=== PATIENT | male | born 1980 | race Caucasian/White ===

== ENCOUNTER 2017-06-09 15:51 | Emergency (ER) | payer SELFPAY ==
[~2017-06-09] VITALS: Ht 182.9 cm; Wt 113.6 kg
[2017-06-09 15:53] VITALS: TEMP 97.2
[2017-06-09 17:04] LABS: BASO # 0.1 (0.0-0.2); BASO % 1.3 % (0.0-2.0); EOS # 0.1 (0.0-0.7); EOS % 1.3 % (0-4.0); GRAN # 4.3 (1.4-6.5); GRAN % 63.3 % (42.2-75.2); HEMATOCRIT 45.7 % (42.0-52.0); HEMOGLOBIN 15.6 g/dl (13.5-18.0); LYMPH # 1.9 (1.2-3.4); MEAN CELL VOLUME 94 fl (80.0-100.0); MEAN CORPUSCULAR HEMOGLOBIN 32 pg (27.0-31.0); MEAN CORPUSCULAR HGB CONC 34 g/dl (33.0-37.0); MEAN PLATELET VOLUME 10.8 fl (7.4-10.4); MONO # 0.4 (0.1-0.6); PLATELET COUNT 262 K/mm3 (130-400); RED BLOOD COUNT 4.88 M/mm3 (4.20-5.60); REDCELL DISTRIBUTION WIDTH-CV 11.9 % (11.5-14.5); WHITE BLOOD COUNT 6.7 K/mm3 (4.8-10.8)
[2017-06-09 17:06] LABS: ADJUSTED CALCIUM 8.3 mg/dL (8.4-10.2); ALBUMIN 3.9 gm/dL (3.5-5.0); BILIRUBIN,TOTAL 0.5 mg/dL (0.0-1.0); CALCIUM 8.2 mg/dL (8.4-10.2); CREATININE, serum 0.73 mg/dL (0.66-1.25); POTASSIUM 3.9 mmol/L (3.4-5.0)
[2017-06-09 18:23] VITALS: BP 114/79
[2017-06-09 19:42] VITALS: PULSE 89
== END 2017-06-09 19:47 | disposition home or self-care (01) ==
LOC: COL.ER 15:51
PROVIDERS: Family Medicine
DX: F10.129 Alcohol abuse with intoxication, unspecified (principal); Y90.8 Blood alcohol level of 240 mg/100 ml or more
CPT/HCPCS: J2405; J7030

== ENCOUNTER 2018-07-16 15:25 | Emergency (ER) | payer SELFPAY ==
[~2018-07-16] VITALS: Ht 185.4 cm; Wt 103.2 kg
[2018-07-16 15:28] VITALS: BP 131/82; TEMP 99.6
[2018-07-16] MEDS ORDERED: NORCO 325 MG-51 TAB PO (16:43)
[2018-07-16 17:25] VITALS: PULSE 112
== END 2018-07-16 17:25 | disposition home or self-care (01) ==
LOC: COL.ER 15:25
DX: S83.91XA Sprain of unspecified site of right knee, initial encounter (principal); M25.461 Effusion, right knee; X50.0XXA Overexertion from strenuous movement or load, initial encounter
CPT/HCPCS: L1846

== ENCOUNTER 2019-08-16 01:22 | Emergency (ER) | payer SELFPAY ==
[~2019-08-16] VITALS: Ht 185.4 cm; Wt 104.5 kg
[~2019-08-16 01:22] MED LIST: NORCO 325 MG-51 TAB PO
[2019-08-16 01:24] VITALS: TEMP 97.6
[2019-08-16 01:40] LABS: BASO % 0.9 % (0.0-2.0); EOS # 0.1 (0.0-0.7); EOS % 1.4 % (0-4.0); GRAN # 2.3 (1.4-6.5); GRAN % 53.7 % (42.2-75.2); HEMATOCRIT 49.9 % (42.0-52.0); HEMOGLOBIN 16.7 g/dl (13.5-18.0); LYMPH # 1.4 (1.2-3.4); LYMPH % 33.6 % (20.0-51.0); MEAN CELL VOLUME 95 fl (80.0-100.0); MEAN CORPUSCULAR HEMOGLOBIN 32 pg (27.0-31.0); MEAN CORPUSCULAR HGB CONC 34 g/dl (33.0-37.0); MONO # 0.4 (0.1-0.6); MONO % 10.2 % (1.7-9.3); PLATELET COUNT 125 K/mm3 (130-400); RED BLOOD COUNT 5.24 M/mm3 (4.20-5.60); REDCELL DISTRIBUTION WIDTH-CV 14.6 % (11.5-14.5)
[2019-08-16 01:49] LABS: BILIRUBIN,TOTAL 1.2 mg/dL (0.0-1.0); CALCIUM 8.2 mg/dL (8.4-10.2); CREATININE, serum 0.72 (0.66-1.25); POTASSIUM 3.4 mmol/L (3.4-5.0); TOTAL PROTEIN 7.7 gm/dL (6.4-8.2)
--- NOTE | 2019-08-16 09:15 | NUR ---
JOAQUIM mo responded to a social work program coordinator consult for the patient due to alcohol related concerns. JOAQUIM mo verified the patient's demographics but states his telephone number is . The patient is self-pay and student asked the patient if he was interested in speaking to [facility] financial counselors. The patient was interested, JOAQUIM mo contacted [facility]. One of the counselors will visit with the patient before discharge. JOAQUIM mo offered the substance abuse options of inpatient and outpatient rehab. The patient was not interested in these options. The patient reports he has a commanding officer garage (PO), Alesia Leal for about a month and will have her for a year. The patient reports he is to set up a free drug evaluation with his PO sometime next week. The patient did not have his phone with him and did not have his POs phone number. JOAQUIM mo collaborated the above information with the patient's nurse.
[2019-08-16 11:00] VITALS: BP 113/80; PULSE 76
== END 2019-08-16 11:00 | disposition home or self-care (01) ==
LOC: COL.ER 01:22
PROVIDERS: Nurse Practitioner
DX: F10.229 Alcohol dependence with intoxication, unspecified (principal); R94.5 Abnormal results of liver function studies; Y90.8 Blood alcohol level of 240 mg/100 ml or more
CPT/HCPCS: J2405; J7030

== ENCOUNTER 2022-03-30 16:18 | Emergency (ER) | payer SELFPAY ==
[~2022-03-30] VITALS: Ht 185.4 cm; Wt 90.9 kg
[2022-03-30 16:20] VITALS: TEMP 99.4
[2022-03-30 16:54] LABS: HEMATOCRIT 44.7 % (42.0-52.0); HEMOGLOBIN 16.1 g/dl (13.5-18.0); MEAN CELL VOLUME 93 fl (80.0-100.0); MEAN CORPUSCULAR HEMOGLOBIN 33 pg (27-31); MEAN CORPUSCULAR HGB CONC 36 g/dl (33.0-37.0); MEAN PLATELET VOLUME 11.3 fl (7.4-10.4); PLATELET COUNT 104 K/mm3 (130-400); RED BLOOD COUNT 4.82 M/mm3 (4.20-5.60); REDCELL DISTRIBUTION WIDTH-CV 12.2 % (11.5-14.5)
[2022-03-30 17:18] LABS: ALBUMIN 3.8 gm/dL (3.5-5.0); ANION GAP 19 mmol/L (7-16); BLOOD UREA NITROGEN 5 mg/dL (9-21); CALCIUM 8.6 mg/dL (8.4-10.2); CARBON DIOXIDE 24 mmol/L (22-29); CHLORIDE 96 mmol/L (98-107); CREATININE, serum 0.82 mg/dL (0.72-1.25); GLUCOSE 111 mg/dL (70-99); MAGNESIUM 1.7 mg/dL (1.6-2.6); PHOSPHOROUS 1.5 mg/dL (2.3-4.7); SODIUM 139 mmol/L (136-145)
[2022-03-30 17:42] LABS: ALCOHOL(ethanol),MEDICAL < 10 mg/dL (0-10)
[2022-03-30 17:43] LABS: POTASSIUM 2.7 mmol/L (3.5-4.5)
[2022-03-30 18:04] LABS: COLLECTION METHOD CLEAN CATCH
[2022-03-30 18:12] LABS: MUCOUS Present (NOT PRESENT); PH 6 (5-8); SQUAMOUS EPITHELIAL None Seen /hpf (0-10); URINE APPEARANCE Clear (CLEAR/HAZY); URINE BACTERIA None Seen /hpf (NONE SEEN); URINE BILIRUBIN Negative (NEGATIVE); URINE BLOOD Negative (NEGATIVE); URINE COLOR Amber (YELLOW); URINE GLUCOSE Negative (NEGATIVE); URINE KETONE Trace (NEGATIVE); URINE LEUKOCYTE ESTERASE Negative (NEGATIVE); URINE NITRATE Negative (NEGATIVE); URINE PROTEIN(semi-quant) 2+ (NEGATIVE); URINE RBC 0-2 /hpf (0-2); URINE UROBILINOGEN >=4.0 (NEGATIVE)
[2022-03-30 18:18] LABS: TRICYCLIC ANTIDEPRESS URINE NEGATIVE
[2022-03-30] MEDS ORDERED: K-DUR20 MEQ PO (19:46)
[2022-03-30 19:58] VITALS: BP 121/81; PULSE 98
== END 2022-03-30 19:58 | disposition home or self-care (01) ==
LOC: COL.ER 16:18
PROVIDERS: Emergency Medicine
DX: R25.8 Other abnormal involuntary movements (principal); E87.6 Hypokalemia; Z28.311 Partially vaccinated for COVID-19
CPT/HCPCS: J3480; J7120

== ENCOUNTER 2022-08-21 22:17 | Emergency (ER) | payer SELFPAY ==
[~2022-08-21] VITALS: Ht 185.4 cm; Wt 104.5 kg
[~2022-08-21 22:17] MED LIST changes: +K-DUR20 MEQ PO
[2022-08-21 22:18] VITALS: TEMP 98.6
[2022-08-21 22:46] LABS: BASO % 0.5 % (0.0-2.0); EOS % 0.1 % (0.0-4.0); GRAN # 6.6 K/mm3 (1.4-6.5); GRAN % 82.4 % (42.2-75.2); HEMATOCRIT 47.5 % (42.0-52.0); LYMPH # 0.6 K/mm3 (1.2-3.4); LYMPH % 7.7 % (20.0-51.0); MEAN CELL VOLUME 89 fl (80.0-100.0); MEAN CORPUSCULAR HEMOGLOBIN 32 pg (27-31); MEAN CORPUSCULAR HGB CONC 36 g/dl (33.0-37.0); MEAN PLATELET VOLUME 10.9 fl (7.4-10.4); MONO # 0.7 K/mm3 (0.1-0.6); MONO % 9.1 % (1.7-9.3); PLATELET COUNT 87 K/mm3 (130-400); RED BLOOD COUNT 5.33 M/mm3 (4.20-5.60); REDCELL DISTRIBUTION WIDTH-CV 14.1 % (11.5-14.5)
[2022-08-21 23:04] LABS: ALANINE AMINOTRANSFERASE 100 U/L (0-55); ALBUMIN 3.9 gm/dL (3.5-5.0); ALKALINE PHOSPHATASE 206 U/L (40-150); ANION GAP 29 mmol/L (7-16); AST,SGOT 162 U/L (5-34); BILIRUBIN,TOTAL 4.6 mg/dL (0.2-1.2); BLOOD UREA NITROGEN 8 mg/dL (9-21); C-REACTIVE PROTEIN 0.16 mg/dL (0.00-0.50); CALCIUM 8.7 mg/dL (8.4-10.2); CARBON DIOXIDE 17 mmol/L (22-29); CREATINE KINASE 234 U/L (30-200); CREATININE, serum 1.29 mg/dL (0.72-1.25); GLUCOSE 97 mg/dL (70-99); SODIUM 135 mmol/L (136-145)
[2022-08-21 23:08] LABS: CHLORIDE 89 mmol/L (98-107); POTASSIUM 2.8 mmol/L (3.5-4.5)
[2022-08-21 23:15] LABS: TROPONIN-I < 0.010 ng/mL (0.00-0.033)
[2022-08-22] MEDS ORDERED: ZOFRAN ODT4 MG PO (01:40)
[2022-08-22 02:00] VITALS: BP 135/86; PULSE 85
[2022-08-22] MEDS ORDERED: KEPPRA 500MG500 MG PO (20:38)
== END 2022-08-22 03:00 | disposition home or self-care (01) ==
LOC: COL.ER 22:17
PROVIDERS: Emergency Medicine
DX: R55 Syncope and collapse (principal); E87.6 Hypokalemia; R11.2 Nausea with vomiting, unspecified; R17 Unspecified jaundice
CPT/HCPCS: J3480; J7030

== ENCOUNTER 2022-08-22 17:36 | Emergency (ER) | payer SELFPAY ==
[~2022-08-22] VITALS: Ht 185.4 cm; Wt 104.5 kg
[~2022-08-22 17:36] MED LIST changes: +ZOFRAN ODT4 MG PO
[2022-08-22 17:40] VITALS: TEMP 98.6
[2022-08-22 18:14] LABS: BASO % 0.4 % (0.0-2.0); EOS % 0.7 % (0.0-4.0); GRAN # 3.5 K/mm3 (1.4-6.5); GRAN % 76.5 % (42.2-75.2); HEMATOCRIT 45.3 % (42.0-52.0); HEMOGLOBIN 15.9 g/dl (13.5-18.0); LYMPH # 0.6 K/mm3 (1.2-3.4); LYMPH % 12.6 % (20.0-51.0); MEAN CELL VOLUME 91 fl (80.0-100.0); MEAN CORPUSCULAR HEMOGLOBIN 32 pg (27-31); MEAN CORPUSCULAR HGB CONC 35 g/dl (33.0-37.0); MEAN PLATELET VOLUME 11.3 fl (7.4-10.4); MONO # 0.4 K/mm3 (0.1-0.6); MONO % 9.1 % (1.7-9.3); PLATELET COUNT 62 K/mm3 (130-400); REDCELL DISTRIBUTION WIDTH-CV 14.5 % (11.5-14.5)
[2022-08-22 18:23] LABS: ALANINE AMINOTRANSFERASE 78 U/L (0-55); ALBUMIN 3.5 gm/dL (3.5-5.0); ALKALINE PHOSPHATASE 162 U/L (40-150); ANION GAP 14 mmol/L (7-16); AST,SGOT 125 U/L (5-34); BILIRUBIN,TOTAL 3.4 mg/dL (0.2-1.2); BLOOD UREA NITROGEN 5 mg/dL (9-21); CALCIUM 8.3 mg/dL (8.4-10.2); CARBON DIOXIDE 22 mmol/L (22-29); CHLORIDE 98 mmol/L (98-107); CREATININE, serum 0.82 mg/dL (0.72-1.25); GLUCOSE 95 mg/dL (70-99); POTASSIUM 3.2 mmol/L (3.5-4.5); SODIUM 134 mmol/L (136-145); TOTAL PROTEIN 6.9 gm/dL (6.2-8.1)
[2022-08-22 18:25] LABS: ALCOHOL(ethanol),MEDICAL < 10 mg/dL (0-10)
[2022-08-22] MEDS ORDERED: KEPPRA 500MG500 MG PO (20:38)
[2022-08-22 20:55] VITALS: BP 142/98; PULSE 76
== END 2022-08-22 20:58 | disposition home or self-care (01) ==
LOC: COL.ER 17:36
PROVIDERS: Physician Assistant
DX: S01.01XA Laceration without foreign body of scalp, initial encounter (principal); R56.9 Unspecified convulsions; F10.11 Alcohol abuse, in remission; R74.01 Elevation of levels of liver transaminase levels; E22.1 Hyperprolactinemia; E80.7 Disorder of bilirubin metabolism, unspecified; X58.XXXA Exposure to other specified factors, initial encounter
CPT/HCPCS: J1885; J1953; J2060; J7030

== ENCOUNTER 2022-08-28 22:04 | Emergency (ER) | payer SELFPAY ==
[~2022-08-28] VITALS: Ht 185.4 cm; Wt 90.9 kg
[~2022-08-28 22:04] MED LIST changes: +KEPPRA 500MG500 MG PO
[2022-08-28 22:19] VITALS: TEMP 99
[2022-08-28 22:53] LABS: BASO # 0.1 K/mm3 (0.0-0.2); BASO % 1.6 % (0.0-2.0); EOS # 0.1 K/mm3 (0.0-0.7); GRAN # 2.6 K/mm3 (1.4-6.5); GRAN % 54.2 % (42.2-75.2); HEMATOCRIT 45.8 % (42.0-52.0); HEMOGLOBIN 15.5 g/dl (13.5-18.0); LYMPH # 1.4 K/mm3 (1.2-3.4); LYMPH % 29.2 % (20.0-51.0); MEAN CELL VOLUME 94 fl (80.0-100.0); MEAN CORPUSCULAR HEMOGLOBIN 32 pg (27-31); MEAN CORPUSCULAR HGB CONC 34 g/dl (33.0-37.0); MEAN PLATELET VOLUME 10.1 fl (7.4-10.4); MONO # 0.7 K/mm3 (0.1-0.6); MONO % 13.4 % (1.7-9.3); PLATELET COUNT 247 K/mm3 (130-400); RED BLOOD COUNT 4.87 M/mm3 (4.20-5.60); REDCELL DISTRIBUTION WIDTH-CV 15.5 % (11.5-14.5)
[2022-08-28 23:14] LABS: ALBUMIN 3.9 gm/dL (3.5-5.0); BILIRUBIN,TOTAL 0.7 mg/dL (0.2-1.2); CALCIUM 8.7 mg/dL (8.4-10.2); CREATININE, serum 0.88 mg/dL (0.72-1.25); MAGNESIUM 1.7 mg/dL (1.6-2.6); POTASSIUM 3.8 mmol/L (3.5-4.5)
[2022-08-28 23:34] LABS: TSH w REFLEX 1.195 uIU/mL (0.350-4.940)
[2022-08-29 08:51] VITALS: BP 157/97; PULSE 100
== END 2022-08-29 08:51 | disposition home or self-care (01) ==
LOC: COL.ER 22:04
PROVIDERS: Emergency Medicine
DX: F10.129 Alcohol abuse with intoxication, unspecified (principal); R00.0 Tachycardia, unspecified; Y90.8 Blood alcohol level of 240 mg/100 ml or more; Z20.822 Contact with and (suspected) exposure to COVID-19
CPT/HCPCS: J2060; J7120

== ENCOUNTER 2022-08-29 16:03 | Emergency (ER) | payer SELFPAY ==
[~2022-08-29] VITALS: Ht 185.4 cm; Wt 104.5 kg
[2022-08-29 16:04] VITALS: TEMP 97.4
[2022-08-29 16:42] LABS: BASO # 0.1 K/mm3 (0.0-0.2); BASO % 1.7 % (0.0-2.0); EOS # 0.1 K/mm3 (0.0-0.7); EOS % 0.9 % (0.0-4.0); GRAN # 2.7 K/mm3 (1.4-6.5); GRAN % 51.2 % (42.2-75.2); HEMATOCRIT 41.5 % (42.0-52.0); HEMOGLOBIN 14.2 g/dl (13.5-18.0); LYMPH # 1.4 K/mm3 (1.2-3.4); LYMPH % 26.2 % (20.0-51.0); MEAN CELL VOLUME 93 fl (80.0-100.0); MEAN CORPUSCULAR HEMOGLOBIN 32 pg (27-31); MEAN CORPUSCULAR HGB CONC 34 g/dl (33.0-37.0); MEAN PLATELET VOLUME 10.1 fl (7.4-10.4); MONO # 1.1 K/mm3 (0.1-0.6); MONO % 19.8 % (1.7-9.3); PLATELET COUNT 247 K/mm3 (130-400); RED BLOOD COUNT 4.46 M/mm3 (4.20-5.60); REDCELL DISTRIBUTION WIDTH-CV 15.1 % (11.5-14.5)
[2022-08-29 17:14] LABS: ALBUMIN 3.4 gm/dL (3.5-5.0); BILIRUBIN,TOTAL 0.8 mg/dL (0.2-1.2); C-REACTIVE PROTEIN 0.68 mg/dL (0.00-0.50); CALCIUM 8.2 mg/dL (8.4-10.2); CREATININE, serum 0.85 mg/dL (0.72-1.25); POTASSIUM 3.2 mmol/L (3.5-4.5); TOTAL PROTEIN 7.2 gm/dL (6.2-8.1)
[2022-08-29 18:08] LABS: COLLECTION METHOD CLEAN CATCH
[2022-08-29 18:14] VITALS: BP 140/81; PULSE 104
[2022-08-29 18:20] LABS: URINE APPEARANCE Clear (CLEAR/HAZY); URINE BLOOD Negative (NEGATIVE); URINE COLOR Yellow (YELLOW); URINE GLUCOSE Negative (NEGATIVE); URINE KETONE Negative (NEGATIVE); URINE NITRATE Negative (NEGATIVE); URINE PROTEIN(semi-quant) Negative (NEGATIVE); URINE UROBILINOGEN 0.2 E.U/dL (0.2-1.0)
[2022-08-29 18:28] LABS: SQUAMOUS EPITHELIAL None Seen /hpf (0-10); URINE BACTERIA None Seen /hpf (NONE SEEN); URINE RBC 0-2 /hpf (0-2)
== END 2022-08-29 18:30 | disposition home or self-care (01) ==
LOC: COL.ER 16:03
PROVIDERS: Family Medicine
DX: G40.909 Epilepsy, unspecified, not intractable, without status epilepticus (principal); F10.20 Alcohol dependence, uncomplicated; Y90.8 Blood alcohol level of 240 mg/100 ml or more
CPT/HCPCS: J2405; J7120